=== PATIENT | female | born 1935 | race Caucasian/White ===

== ENCOUNTER 2018-02-22 18:08 | Observation (INO) | payer MEDICARE, BC ==
[2018-02-22 18:58] LABS: #Basophils 0.1 thou/uL (0.0-0.2); #Eosinphils 0.2 thou/uL (0.0-0.7); #Lymphocytes 2.6 thou/uL (1.20-3.40); #Monocytes 0.6 thou/uL (0.11-0.59); #Neutrophils 4.1 thou/uL (1.40-6.50); %Basophils 1.3 % (0.0-1.0); %Lymphocytes 34.5 % (21.0-51.0); %Monocytes 8.4 % (0.0-10.0); %Neutrophils 53.9 % (42.0-75.0); Hemoglobin 14.9 g/dL (12.0-16.0); Mean Corpuscular HGB CONC 33.5 g/dL (32.0-36.0); Mean Corpuscular Hemoglobin 32.1 pg (27.0-31.0); Mean Corpuscular Volume 95.9 fL (78.0-98.0); Mean Platelet Volume 8.1 fL (7.4-10.4); Platelet Count 242 thou/uL (130-400); RBC Distribution Width 12.4 % (11.5-14.5); Red Blood Cell (RBC) Count 4.65 mill/uL (4.20-5.40); White Blood Cell (WBC) Count 7.7 thou/uL (4.8-10.8)
[2018-02-22] MEDS ORDERED: Nitroglycerin 2% Ointment 1 INCH/1 GM Packet ONE (18:59)
[2018-02-22 19:07] LABS: INR-International Normal Ratio 1.1; PTT 30.8 SEC (22.9-36.1); Prothrombin Time 14.6 SEC (12.0-14.7)
[2018-02-22 19:20] LABS: ALT (SGPT) 11 U/L (8-55); AST (SGOT) 17 U/L (5-34); Albumin 3.8 g/dL (3.4-4.8); Alkaline Phosphatase 58 U/L (40-150); Anion Gap 14 mmol/L (10-20); BUN (Urea Nitrogen) 16 mg/dL (9.8-20.1); Bilirubin, Total 0.9 mg/dL (0.2-1.2); CK (CPK) 52 U/L (29-168); Calc. Creatinine Clearance 0 mL/min (70-130); Calcium 9.5 mg/dL (7.8-10.44); Carbon Dioxide 24 mmol/L (23-31); Chloride 105 mmol/L (98-107); Estimated GFR-MDRD 54; Glucose 98 mg/dL (83-110); Potassium 3.8 mmol/L (3.5-5.1); Protein, Total 6.8 g/dL (6.0-8.3); Sodium 139 mmol/L (136-145)
[2018-02-22 19:24] LABS: CKMB 1.3 ng/mL (0-6.6); Troponin I Less than 0.010 ng/mL (< 0.028)
[2018-02-22 19:57] LABS: Bilirubin Negative (Negative); Blood, Urine Negative (Negative); Glucose, Urine (Dipstick) Negative (Negative); Leukocyte Negative (Negative); Nitrite Negative (Negative); Protein, Urine (Dipstick) Negative (Neg-Trace); Urobilinogen 0.2 mg/dL (0.2-1.0)
--- NOTE | 2018-02-22 19:57 | RAD ---
PORTABLE CHEST: HISTORY: Altered mental status. Weakness. Lethargy. COMPARISON: 08/21/2016 FINDINGS: Heart size is within normal limits. There are atherosclerotic changes of the aorta. Chronic lung ch anges are seen. Arthritic changes of both shoulders. An old injury to the left humeral neck region is seen. IMPRESSION: No active intrathoracic disease. Stable examination. POS: KATIANA
[2018-02-22 20:00] LABS: Clarity CLEAR (Clear)
--- NOTE | 2018-02-22 20:09 | CT ---
CT BRAIN WITHOUT CONTRAST ENHANCEMENT: HISTORY: Altered mental status. FINDINGS: There is some generalized ventricular and sulcal prominence. There are no signs of intracerebral hem orrhage or extraaxial fluid collections. Some decreased attenuation through the periventricular whit e matter and external capsular region all appear chronic in nature. No hemorrhage or mass effect. T he mastoid air cells and visualized sinuses are clear. IMPRESSION: No acute intracranial abnormalities. POS: KATIANA
[2018-02-22] MEDS ORDERED: hydrALAZINE 20 MG/ML VIAL ONE (20:23)
[2018-02-22] MEDS ORDERED: Meclizine HCl 25 MG TAB ONE (21:34)
[2018-02-22 22:18] LABS: Troponin I Less than 0.010 ng/mL (< 0.028)
[2018-02-23 01:16] LABS: Troponin I Less than 0.010 ng/mL (< 0.028)
[2018-02-23 04:22] VITALS: BMI 26.6
[2018-02-23] MEDS ORDERED: Ondansetron HCl/PF 4 MG/2 ML Vial IVP PRN ×2 (07:05→10:49)
[2018-02-23] MEDS ORDERED: Ondansetron ODT 4 MG TAB PO PRN ×2 (07:05→10:49)
[2018-02-23] MEDS ORDERED: Acetaminophen 325 MG TAB PO PRN (07:06)
[2018-02-23] MEDS ORDERED: Sodium Chloride 0.9% 1,000 ML IV SCH (07:15)
[2018-02-23] MEDS ORDERED: Gadobenate Dimeglumine 529 MG/1 ML (20ML VIAL) ONE (09:13)
[2018-02-23] MEDS ORDERED: cloNIDine 0.1 MG TAB PO PRN (10:49)
[2018-02-23] MEDS ORDERED: Acetaminophen 500 MG TAB PO PRN (10:49)
[2018-02-23] MEDS ORDERED: hydrALAZINE 20 MG/ML VIAL SLOW IVP PRN (10:49)
--- NOTE | 2018-02-23 11:56 | HP ---
DATE OF ADMISSION: 02/23/2018 PRIMARY CARE PROVIDER: Dr. River De La Rosa. CHIEF COMPLAINT: Dizziness. HISTORY OF PRESENT ILLNESS: This is an 83-year-old female who presents to [facility] in transfer from [facility] where patient has been a current residen t over the last 2 years. The patient provides little history as most of it is obtained by the daught er at the bedside due to a history of dementia in the patient. The daughter reports increasing dizzi ness reported by the patient as well as unwillingness to get out of bed and decreased oral intake. T he patient also had complained history of dizziness which caused her reluctance to get out of bed and ambulate and participates in activities at [facility]. Patient with a history of dementia on chronic Aricept after a traumatic brain injury approximately in 2013 sustaining a subdural hematoma requirin g a shunt placement. The patient has had intermittent memory difficulties since this diagnosis and h as had serial MRIs over the last 6-12 months documenting any evidence for recurrence. The patient mccormack s been followed by Dr. Genia Zuniga with Neurology Service and was recently seen in 01/2018 and placed on Namenda in addition to Aricept. The family had noticed increasing difficulty with memory and shor t term memory loss. No reported history of fall, recent surgical intervention, fever, exposure histo ry or travel. The patient's last meal was on morning of admission. In the emergency room, patient u nderwent general evaluation including CT imaging of the brain showing no acute intracranial process. Screening metabolic survey was essentially unremarkable other than elevated blood pressure in the em ergency room. The patient received IV hydralazine, intravenous normal saline and transdermal nitrogl ycerin with apparent hypotensive episode. The patient was placed in Trendelenburg after transfer to the Telemetry Unit with overall improvement and resolution of the hypotension with supportive managem ent. PAST MEDICAL HISTORY: 1. Progressive dementia. 2. 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 3. Hypertension. PAST SURGICAL HISTORY: 1. Status post cholecystectomy. 2. Status post shunt placement due to subdural hematoma. CURRENT MEDICATIONS: 1. Calcium carbonate 600 mg 1 tab p.o. daily. 2. Vitamin D3 1000 units p.o. daily. 3. Aricept 10 mg p.o. at bedtime. 4. Memantine 5 mg p.o. b.i.d. 5. Effexor XR 37.5 mg p.o. daily. ALLERGIES: No known drug allergies. FAMILY HISTORY: Positive for dementia. SOCIAL HISTORY: Patient resides at [facility] over the last 2 years in assisted living. No current a lcohol, tobacco or illicit drug use. Ambulates with the use of her cane. REVIEW OF SYSTEMS: The following complete review of systems was negative, unless otherwise mentioned in the HPI or below: Constitutional: Weight loss or gain, ability to conduct usual activities. Skin: Rash, itching. Eyes: Double vision, pain. ENT/Mouth: Nose bleeding, neck stiffness, pain, tenderness. Cardiovascular: Palpitations, dyspnea on exertion, orthopnea. Respiratory: Shortness of breath, wheezing, cough, hemoptysis, fever or night sweats. Gastrointestinal: Poor appetite, abdominal pain, heartburn, nausea, vomiting, constipation, or diarr hea. Genitourinary: Urgency, frequency, dysuria, nocturia. Musculoskeletal: Pain, swelling. Neurologic/Psychiatric: Anxiety, depression. Allergy/Immunologic: Skin rash, bleeding tendency. Otherwise negative except as stated per HPI. PHYSICAL EXAMINATION: VITAL SIGNS: On admission blood pressure 165/57, pulse 59, respiratory rate 14, temperature 98.4 deg belkys Fahrenheit, O2 saturation 96% on room air. GENERAL APPEARANCE: This 83-year-old female, alert and oriented x2, pleasant, conversant, in no acute distress. HEENT: Pupils are equal, round and reactive to light and accommodation. Extraocular muscles are int act. No scleral icterus, no conjunctival injection. Nares patent. OP is clear. Teeth in good repa ir. NECK: Supple, no cervical adenopathy, no thyromegaly, no carotid bruits, no JVD appreciated. Cervic al spine with full active and passive range of motion. No meningeal signs appreciated. CHEST: Lungs are clear to auscultation bilaterally. CARDIOVASCULAR: S1, S2, without noted murmur, rub or gallop. ABDOMEN: Rounded, soft, nontender, nondistended. Bowel sounds are positive in all four quadrants. There is no hepatosplenomegaly, no abdominal bruits, no rebound or guarding appreciated. EXTREMITIES: Warm and dry with fair turgor. No clubbing, cyanosis or asymmetric edema appreciated. Pulses palpable distally at the dorsalis pedis, posterior tibial and popliteal arteries bilaterally. Capillary refill is less than 2 seconds. NEUROLOGIC: Cranial nerves II-XII are grossly intact. Alert and oriented x2. Not observed ambulato ry during this exam. PERTINENT LABORATORY DATA AND IMAGING DATA: Complete metabolic profile within normal limits. Tropon in I negative x3. Lactic acid level 1.0. CBC within normal limits. PT 14.6, INR 1.1, PTT 30.8. Ur inalysis showed trace ketones. CT of the brain without contrast dated 02/22/2018 showed no acute int racranial process. Portable chest x-ray dated 02/22/2018 showed no acute cardiopulmonary process. E KG dated 02/22/2018 by my interpretation shows sinus bradycardia with heart rates in the 50s. Normal R-wave progression noted in the precordial leads. Normal axis. No acute ST-T wave changes apprecia ryder. ASSESSMENT AND PLAN: 1. Dizziness. Etiology unclear. Questionable relationship to history of traumatic brain injury and subdural hematoma. Questionable influence with labile hypertension. Continue serial blood pressure monitoring. Check orthostatic vital signs q.4 hours x2. Check TSH, magnesium and phosphorus level in the a.m. 2. Hypertension. Labile. We will continue serial blood pressure monitoring. The patient may need antihypertensive regimen prior to discharge. 3. Traumatic brain injury with subdural hematoma. We will obtain MRI imaging to rule out an acute i ntracranial process to explain patient's presentation. 4. Dementia, progressive. We will continue Aricept and Namenda. 5. Prophylaxis. Sequential compression devices while in bed. Pepcid 20 mg p.o. b.i.d. PT evaluati on in the a.m. 6. Code status is FULL. Surrogate medical decision maker is the patient's daughter.
[2018-02-23 15:19] VITALS: TEMP 98.1
--- NOTE | 2018-02-23 16:12 | MRI ---
MRI BRAIN PERFORMED WITH AND WITHOUT CONTRAST ENHANCEMENT: HISTORY: Increasing weakness and lethargy. History of subdural hematoma. COMPARISON: CT study from 02/22/2018. FINDINGS: There is generalized ventricular and sulcal prominence. Areas of increased signal change in the whit e matter on the T2 and FLAIR sequences are consistent with some chronic white matter change. Postop right frontal craniotomy change is again noted. I do not see any signs of acute infarct on the diffusion weighted sequence. Post contrast images do not show any areas of abnormal contrast enhancement. No mass effect is seen. The mastoid air cells and visualized sinuses appear clear. There is minimal mucosal change within th e ethmoid air cells. IMPRESSION: Atrophy with chronic white matter change. POS: LI
[2018-02-23 16:25] VITALS: BP 149/62
[2018-02-23] MEDS ORDERED: Famotidine 20 MG TAB PO SCH (21:00)
[2018-02-23] MEDS ORDERED: Donepezil HCl 10 MG TAB PO SCH (21:00)
--- NOTE | 2018-02-24 02:37 | DIS ---
DATE OF ADMISSION: 02/22/2018 DATE OF DISCHARGE: 02/23/2018 DISCHARGE DIAGNOSES: 1. Dizziness, likely secondary to #2. 2. Hypertension, new diagnosis. 3. History of traumatic brain injury with subdural hematoma, negative MRI on 02/23/2018. 4. Dementia, likely Alzheimer's type. CONSULTATIONS: None. PERTINENT LABORATORY AND X-RAY FINDINGS: Complete metabolic profile within normal limits. Troponin I negative x3. CBC within normal limits. Urinalysis negative. CT of the brain without contrast slick ed 02/22/2018 showed no acute intracranial process. Portable chest x-ray dated 02/22/2018 showed no acute cardiopulmonary process. MRI of the brain dated 02/23/2018 showed atrophy with chronic white m atter ischemic changes. HOSPITAL COURSE: Patient was observed on the stroke unit after initially presenting with dizziness. Patient underwent extensive evaluation due to a history of previous traumatic brain injury with asso ciated subdural hematoma in 2013. Patient underwent CT and MRI imaging of the brain showing no evide nce of an acute process or recurrence. Metabolic survey was negative and telemetry monitoring showed a sinus mechanism without evidence of acute arrhythmia or dysrhythmia. Patient was noted with labil e blood pressures with undiagnosed hypertension. Current recommendations are to initiate Norvasc 2.5 mg daily and to titrate for optimal response ongoing basis after discharge. Overall, patient did re main clinically stable throughout the hospital course. I have examined the patient at the time of discharge and discussed followup instructions. Patient an d daughter verbalized understanding and agreement. Patient overall clinically stable and ready for d ischarge on 02/23/2018. DISCHARGE MEDICATIONS: 1. Norvasc 2.5 mg p.o. daily. 2. Calcium carbonate 600 mg 1 tab p.o. daily. 3. Vitamin D3 of 1000 units p.o. daily. 4. Aricept 10 mg p.o. at bedtime. 5. Memantine 5 mg p.o. b.i.d. 6. Effexor XR 37.5 mg p.o. daily. FOLLOWUP: Patient will follow up with her primary care provider, Dr. River De La Rosa within 7 days of dis charge. Patient will follow up with Dr. Genia Zuniga with neurology service and to call his office for appointment time and date. CONDITION ON DISCHARGE: Stable. ACTIVITY: Ad héctor. DIET: Regular. CODE STATUS: FULL. DISPOSITION: Home on 02/23/2018.
[2018-02-24] MEDS ORDERED: Calcium Carbonate 600 MG TAB PO SCH (09:00)
[2018-02-24] MEDS ORDERED: Venlafaxine XR 37.5 MG CAP PO SCH (09:00)
--- NOTE | 2018-02-27 11:20 | EKG ---
Test Reason : HYPERTENSION Blood Pressure : / mmHG Vent. Rate : 057 BPM Atrial Rate : 057 BPM P-R Int : 154 ms QRS Dur : 074 ms QT Int : 454 ms P-R-T Axes : 052 023 041 degrees QTc Int : 441 ms Sinus bradycardia Otherwise normal ECG Confirmed by DEMETRIO Peters, MIR ([id number]), loan expeditor AILEEN ALICEA ([id number] on 02/27/2018 11:20:04 AM Referred By: Confirmed By:MIR ATKINSON M.D.
== END 2018-02-23 17:20 | disposition home or self-care (01) ==
LOC: ERS 18:08 → 2SE 21:15
PROVIDERS: ADMIT Hospitalist; ATTEND Hospitalist
DX: R42 Dizziness and giddiness (principal); I10 Essential (primary) hypertension; F03.90 Unspecified dementia, unspecified severity, without behavioral disturbance, psychotic disturbance, mood disturbance, and anxiety; Z87.820 Personal history of traumatic brain injury; Z79.899 Other long term (current) drug therapy
CPT/HCPCS: 51701; 70450; 70553; 71045; 80053; 81003; 82550; 82553; 83605; 84484 ×3; 85025; 85610; 85730; 93005; 96361 ×2; 96374; 97139; 99285; G0378; G8978; G8979; G8980; 36415; A4353; A9579; J0360

== ENCOUNTER 2018-06-13 17:34 | Emergency (ER) | payer MEDICARE, BC ==
[2018-06-13 18:50] LABS: #Eosinphils 0.1 thou/uL (0.0-0.7); #Lymphocytes 1.8 thou/uL (1.20-3.40); #Monocytes 0.5 thou/uL (0.11-0.59); %Basophils 0.7 % (0.0-1.0); %Eosinophils 1.3 % (0.0-10.0); %Lymphocytes 27.8 % (21.0-51.0); %Monocytes 8.5 % (0.0-10.0); %Neutrophils 61.8 % (42.0-75.0); Hemoglobin 15.9 g/dL (12.0-16.0); Mean Corpuscular HGB CONC 34.8 g/dL (32.0-36.0); Mean Corpuscular Hemoglobin 32.6 pg (27.0-31.0); Mean Corpuscular Volume 93.9 fL (78.0-98.0); Mean Platelet Volume 8.3 fL (7.4-10.4); Platelet Count 222 thou/uL (130-400); RBC Distribution Width 12.2 % (11.5-14.5); Red Blood Cell (RBC) Count 4.86 mill/uL (4.20-5.40); White Blood Cell (WBC) Count 6.4 thou/uL (4.8-10.8)
[2018-06-13 19:12] LABS: ALT (SGPT) 8 U/L (8-55); AST (SGOT) 15 U/L (5-34); Albumin 3.7 g/dL (3.4-4.8); Alkaline Phosphatase 60 U/L (40-150); Anion Gap 18 mmol/L (10-20); BUN (Urea Nitrogen) 14 mg/dL (9.8-20.1); Bilirubin, Total 0.8 mg/dL (0.2-1.2); Calc. Creatinine Clearance 0 mL/min (70-130); Calcium 9.6 mg/dL (7.8-10.44); Carbon Dioxide 20 mmol/L (23-31); Chloride 105 mmol/L (98-107); Estimated GFR-MDRD 58; Globulin 3.2 g/dL (2.4-3.5); Glucose 85 mg/dL (83-110); Potassium 3.6 mmol/L (3.5-5.1); Protein, Total 6.9 g/dL (6.0-8.3); Sodium 139 mmol/L (136-145)
[2018-06-13 19:24] LABS: Bilirubin Moderate (Negative); Blood, Urine Negative (Negative); Clarity CLEAR (Clear); Glucose, Urine (Dipstick) Negative (Negative); Leukocyte Moderate (Negative); Nitrite Negative (Negative); Protein, Urine (Dipstick) 30 mg/dL (Neg-Trace); Specific Gravity, Urine 1.028 (1.002-1.036)
[2018-06-13 19:27] LABS: Bacteria/HPF None Seen HPF (None Seen); RBC/HPF 0-3 HPF (0-3)
[2018-06-13 19:36] LABS: Hyaline Casts/LPF 0-3 HYALINE CAST LPF (0-3 Hyaline); Manual Microscopic Reviewed? No Path Casts Seen; Renal Epithelial None Seen HPF (0-3); Transitional Epithelial NONE SEEN HPF (0-3)
[2018-06-13] MEDS ORDERED: cefTRIAXone\\ROCEPHIN 1 GM VIAL ONE (19:48)
[2018-06-13] MEDS ORDERED: Lidocaine 1% (PF) 30 ML VIAL ONE (19:57)
[2018-06-13] MEDS ORDERED: Nitrofurantoin Monohyd/M-Cryst 100 MG CAP PO SCH (20:00)
== END 2018-06-13 20:24 | disposition home or self-care (01) ==
LOC: ERS 17:34
DX: N39.0 Urinary tract infection, site not specified (principal); Z79.899 Other long term (current) drug therapy
CPT/HCPCS: 36415; 80053; 81003; 81015; 85025; 93005; 96372; J0696; J2001